=== PATIENT | male | born 1985 | race African-American/Black ===

== ENCOUNTER 2018-11-28 17:17 | Emergency (ER) | payer SELFPAY ==
[~2018-11-28] VITALS: Ht 185.4 cm; Wt 95.3 kg
--- NOTE | 2018-11-28 17:18 | NUR ---
ED Nurse Note: Patient brought in by ambulance c/o nausea, patient reports that he snorted methamphetamines 2 hours ago today. patient is alert awake x4 ambulatory steady gait. breathing unlabored and even.
[2018-11-28 17:19] VITALS: BP 158/91
[2018-11-28] MEDS ORDERED: Metoclopramide 10mg/2ml Inj IM ONE (17:30)
[2018-11-28] MEDS ORDERED: Ketorolac 30mg Inj IM ONE (17:30)
[2018-11-28] MEDS ORDERED: IBUPROFEN600 MG ORAL (18:06)
[2018-11-28] MEDS ORDERED: ZOFRAN4 M1 ORAL (18:06)
--- NOTE | 2018-11-28 18:06 | Emergency Room Report ---
History of Present Illness General Chief Complaint: Nausea Source: Patient Present Illness HPI 33-year-old male with no significant past medical history brought in by the paramedics due to nausea that started an hour after methamphetamine use. Patient reports that he has an extensive history of meth use however complains of 5 out of 10 headache, and nausea after amphetamine use today. Denies all other drug use, alcohol intake. Denies vomiting, abdominal pain, diarrhea. Denies chest pain, palpitation, shortness of breath, and all other associated symptoms. Patient is in mild distress upon arrival however ambulatory, responsive. Allergies: Coded Allergies: No Known Allergies (Unverified , 11/28/18) Patient History Past Medical History: see triage record Past Surgical History: unable to obtain Pertinent Family History: none Social History: Reports: drug use - meth Immunizations: UTD Reviewed Nursing Documentation: PMH: Agreed; PSxH: Agreed Nursing Documentation-PMH Past Medical History Deferred: Pt Cognitively Impaired Past Medical History: No Stated History Review of Systems All Other Systems: negative except mentioned in HPI Physical Exam Vital Signs Date Time Temp Pulse Resp B/P (MAP) Pulse Ox O2 Delivery O2 Flow Rate FiO2 11/28/18 17:13 98.8 80 16 162/92 (115) 97 Room Air Sp02 EP Interpretation: reviewed, normal General Appearance: alert, GCS 15, mild distress Head: normocephalic, atraumatic Eyes: bilateral eye normal inspection, bilateral eye PERRL ENT: normal ENT inspection, hearing grossly normal, normal pharynx Neck: normal inspection, full range of motion, supple Respiratory: normal inspection, chest non-tender, lungs clear, normal breath sounds, no rhonchi, no respiratory distress, no wheezing Cardiovascular #1: normal inspection, normal peripheral pulses, regular rate, rhythm, no edema, no gallop, no murmur, normal capillary refill Gastrointestinal: non tender, soft, no guarding, no hernia, no pulsatile mass, no rebound Genitourinary: no CVA tenderness Musculoskeletal: normal inspection, back normal Neurologic: normal inspection, alert, oriented x3, responsive, change director III-XII nml as tested Psychiatric: normal inspection, judgement/insight normal Skin: normal inspection, normal color, no rash, warm/dry Lymphatic: normal inspection, no adenopathy Medical Decision Making PA Attestation All my diagnosis and treatment plans were reviewed ad discussed with my supervising physician Dr. Martinez Diagnostic Impression: Primary Impression: Methamphetamine abuse ER Course 33-year-old male with no significant past medical history brought in by the paramedics due to nausea that started an hour after methamphetamine use. Patient reports that he has an extensive history of meth use however complains of 5 out of 10 headache, and nausea after amphetamine use today. Denies all other drug use, alcohol intake. Denies vomiting, abdominal pain, diarrhea. Denies chest pain, palpitation, shortness of breath, and all other associated symptoms. Patient is in mild distress upon arrival however ambulatory, responsive. Ddx considered but are not limited to: generalized anxiety disorder, panic attack, depression with psycotic featurs, bipolar disorder, drug overdose Vital signs: are WNL, pt. is afebrile H&PE are most consistent with: Methamphetamine abuse nausea secondary to methamphetamine ORDERS: Toradol, Zofran, ibuprofen ED INTERVENTIONS: Toradol and Zofran DISCHARGE: At this time pt. is stable for d/c t patient was sent home via taxi table at time of discharge o home. Will provide printed patient care instructions, and any necessary prescriptions. Care plan and follow up instructions have been discussed with the patient prior to discharge. Patient to follow-up with a primary care provider highly advised to stop using methamphetamine Last Vital Signs Date Time Temp Pulse Resp B/P (MAP) Pulse Ox O2 Delivery O2 Flow Rate FiO2 11/28/18 17:19 98.8 81 17 158/91 98 Room Air Disposition: HOME, SELF-CARE Condition: Stable Scripts Ibuprofen* (MOTRIN*) 600 Mg Tablet 600 MG ORAL Q8H PRN for For Pain, #30 TAB 0 Refills Prov: Francisco Abrams 11/28/18 Ondansetron (Zofran) 4 Mg Tablet 4 MG ORAL Q6H PRN for Nausea & Vomiting, #15 TAB Prov: Francisco Abrams 11/28/18 Referrals: NOT CHOSEN IPA/,REFERRING (PCP) Patient Instructions: Nausea and Vomiting, Adult, Stimulant Use Disorder- Amphetamines Additional Instructions: Avoid using mass follow-up with the primary care provider Francisco Abrams Nov 28, 2018 18:06
--- NOTE | 2018-11-28 18:26 | NUR ---
ER DISCHARGE NOTE: Patient is cleared to be discharged per [facility], pt is aox4, on room air, with stable vital signs. pt was given dc and prescription instructions, pt was able to verbalize understanding, pt id band removed without complications. pt is able to ambulate with steady gait. patient reports his address is [address] [facility] [address] as is on his facesheet called taxi cab. pt took all belongings.
[2018-11-28 18:41] VITALS: BP 158/91
== END 2018-11-28 18:39 | disposition home or self-care (01) ==
LOC: EDBD 17:17 → EMR 17:28
DX: F15.10 Other stimulant abuse, uncomplicated (principal)
CPT/HCPCS: 96372; 99283; J1885; J2765

== ENCOUNTER 2019-07-12 08:41 | Emergency (ER) | payer SELFPAY ==
[~2019-07-12] VITALS: Ht 185.4 cm; Wt 95.3 kg
[~2019-07-12 08:41] MED LIST: IBUPROFEN600 MG ORAL; ZOFRAN4 M1 ORAL
[2019-07-12 08:43] VITALS: BP 112/72
--- NOTE | 2019-07-12 08:43 | NUR ---
ED Nurse Note: Patient ROGER, RA 826, from home c/o n/v x 2 months. Patient states he has 10/10, aching stomach pain. Per patient, he has stomach ulcers d/t drinking too much alcohol and can't hold down any food or liquid. Patient last ate yesterday at the [employer], but states he has been vomiting all morning and any time he lays flat. Emesis bag given to patient. Patient AxO x 4, no s/s of acute distress noted.
[2019-07-12] MEDS ORDERED: Ketorolac 60mg Inj IM ONE (09:00)
--- NOTE | 2019-07-12 09:45 | NUR ---
ED Nurse Note: Patient taken to CT
--- NOTE | 2019-07-12 09:57 | NUR ---
ED Nurse Note: Patient returned from CT
[2019-07-12] MEDS ORDERED: Dicyclomine HCl 10mg/5ml oral soln ORAL ONE (10:30)
--- NOTE | 2019-07-12 10:39 | Diagnostic Imaging Report ---
INDICATION: Abdominal pain TECHNIQUE: Continuous helical transaxial imaging of the abdomen and pelvis was obtained from the lung bases to the pubic symphysis. No intravenous contrast was administered. Coronal 2-D reformats were also obtained. Automatic Exposure Control was utilized. Total Dose length Product (DLP): 1199.[address] Dose Index Volume (CTDIvol): 20 point mGy Comparison: none FINDINGS: Lungs: The visualized lung bases are clear. Liver: There is moderate low attenuation of the liver consistent with fatty infiltration. More focal fat is noted centrally within the liver within the left lobe in and around the middle hepatic vein. Gallbladder/biliary system: There is a suggestion of gallstones and/or sludge within the gallbladder given generalized hypodensity of the gallbladder lumen and slight heterogeneity. There is no biliary ductal dilatation appreciated.. Spleen: Unremarkable Pancreas: Unremarkable Kidneys: No definite stone or hydronephrosis are identified.. Adrenal glands: Unremarkable Bowel: No evidence of bowel obstruction. Appendix is normal. Bladder: Unremarkable Aorta/IVC: Unremarkable Peritoneum: There is no free fluid. Bones: Unremarkable IMPRESSION: Moderate fatty infiltration of the liver. Suspected sludge versus small stones within the gallbladder. Note: Evaluation of solid organs is limited on non contrast imaging. The CT scanner at [facility] is accredited by the [employer] and the scans are performed using dose optimization techniques as appropriate to a performed exam including Automatic Exposure control.
--- NOTE | 2019-07-12 10:45 | NUR ---
ED Nurse Note: Patient tolerating medications well. Patient does not feel nauseated anymore and stomach feels calm, currently 2/10 abdominal pain.
[2019-07-12] MEDS ORDERED: ZOFRAN4 M1 ORAL (11:37)
[2019-07-12] MEDS ORDERED: DICYCLOMINE HCL10 MG ORAL (11:37)
[2019-07-12 11:40] VITALS: BP 112/72
--- NOTE | 2019-07-12 11:40 | NUR ---
ER DISCHARGE NOTE: Patient cleared for DC by Dr. Concepcion. Patient AxO x 4, no s/s of acute distress. VSS. ID band removed, patient walks with steady gait, all belongings with patient. Patient refused signing the DC paperwork.
--- NOTE | 2019-07-12 14:41 | Emergency Room Report ---
History of Present Illness General Chief Complaint: Abdominal Pain Source: Patient Present Illness HPI Patient presents with complaints of mid abdominal pain nausea vomiting Patient also reports that he saw trace of blood in the stool Patient was in acute distress upon arrival Family speaks mainly for the patient There was no reports of recent trauma or travel pain mainly in the epigastric and mid abdominal area Sharp and cramping in nature Allergies: Coded Allergies: No Known Allergies (Unverified , 11/28/18) Patient History Past Medical History: see triage record Reviewed Nursing Documentation: PMH: Agreed; PSxH: Agreed Nursing Documentation-PMH Past Medical History: No Stated History Review of Systems All Other Systems: negative except mentioned in HPI Physical Exam Vital Signs Date Time Temp Pulse Resp B/P (MAP) Pulse Ox O2 Delivery O2 Flow Rate FiO2 07/12/19 08:34 97.9 88 18 112/72 (85) 96 Room Air Sp02 EP Interpretation: reviewed, normal General Appearance: mild distress - Appears uncomfortable and in pain Head: normocephalic, atraumatic Eyes: bilateral eye PERRL, bilateral eye EOMI ENT: EOM grossly intact, normal pharynx Neck: supple Respiratory: lungs clear, no respiratory distress, no retraction Cardiovascular #1: regular rate, rhythm Gastrointestinal: soft - On examination and subjectively points to mid abdominal area for discomfort Genitourinary: no CVA tenderness Musculoskeletal: normal inspection, back normal Neurologic: alert, oriented x3 Psychiatric: normal inspection Skin: no rash Lymphatic: normal inspection Medical Decision Making Diagnostic Impression: Primary Impression: abdominal pain ER Course With the history exam and presentation, multiple differentials considered, including but not limited to appendicitis, gastritis, cholecystitis, diverticulitis Patient had acute intervention performed in the ER feels significantly improved Patient remains hemodynamically stable Appears to have findings consistent with midepigastric and gastric pathology On repeat evaluation patient resting comfortably and is stable for close outpatient follow-up CT/MRI/US Diagnostic Results CT/MRI/US Diagnostic Results : Impression CT abdomen pelvisIMPRESSION: Moderate fatty infiltration of the liver. Suspected sludge versus small stones within the gallbladder. Note: Evaluation of solid organs is limited on non contrast imaging. Last Vital Signs Date Time Temp Pulse Resp B/P (MAP) Pulse Ox O2 Delivery O2 Flow Rate FiO2 07/12/19 11:40 97.8 88 18 112/72 96 Room Air Status: improved Disposition: HOME, SELF-CARE Condition: Improved Scripts Dicyclomine Hcl* (DICYCLOMINE HCL*) 10 Mg Capsule 10 MG ORAL TID, #10 CAP Prov: Montrell Concepcion DO 07/12/19 Ondansetron (Zofran) 4 Mg Tablet 4 MG ORAL Q8HR PRN for Nausea & Vomiting, #12 TAB Prov: Montrell Concepcion DO 07/12/19 Referrals: NOT CHOSEN IPA/,REFERRING (PCP) [facility] De[facility] Patient Instructions: Abdominal Pain, Adult Additional Instructions: Patient is provided with the discharge instructions notified to follow up with primary doctor in the next 2-3 days otherwise return to the er with any worsening symptoms. Please note that this report is being documented using [employer] technology. This can lead to erroneous entry secondary to incorrect interpretation by the dictating instrument. Montrell Concepcion DO Jul 12, 2019 14:41
== END 2019-07-12 11:40 | disposition home or self-care (01) ==
LOC: EDBD 08:41 → EMR 11:37
DX: R10.9 Unspecified abdominal pain (principal); K76.0 Fatty (change of) liver, not elsewhere classified
CPT/HCPCS: 74176; 96372; 99284